=== PATIENT | male | born 1945 | race Caucasian/White ===

== ENCOUNTER 2018-07-08 08:14 | Inpatient (IN) | payer MEDICARE, BC, SELFPAY ==
[2018-06-20 08:56] VITALS: BMI 33.3
[2018-07-08] VITALS (14 sets, daily range): BP systolic 100–156; BP diastolic 55–97; PULSE 44–91; RESP 16–20; TEMP 36–37.1; O2SAT 18–98; BMI 33.3
--- NOTE | 2018-07-08 | DI.RAD.S_ITS ---
PROCEDURE: XR PELVIS 1-2V INDICATIONS: TOTAL HIP TECHNIQUE: 1 view of the lower pelvis acquired. COMPARISON: None. FINDINGS: Bones: Patient is status post right hip arthroplasty, with hardware components in expected positions. The hip joint appears congruent. The visualized bony structures appear intact. Previously placed left hip arthroplasty hardware is seen. Soft tissues: Overlying postoperative changes are noted. No suspicious soft tissue densities. Vasectomy clips are seen. IMPRESSION: Normal postoperative examination. Dictated by: Marcus Guillen M.D. on 07/08/2018 at 14:41 Approved by: Marcus Guillen M.D. on 07/08/2018 at 14:41
--- NOTE | 2018-07-08 08:53 | PM.PREOP ---
Pre-operative Note Interval Note Pre-op Check: Yes History & Physical Reviewed by Physician Changes: No
[2018-07-08] MEDS: CELECOXIB 200 MG CAPSULE PO (09:31)
[2018-07-08] MEDS: ACETAMINOPHEN 325 MG TABLET 975 MG PO ×3 (09:32→20:44)
[2018-07-08] MEDS: LACTATED RINGERS 1,000 ML 42 ML IV ×2 (09:33→12:09)
[2018-07-08] MEDS: PREGABALIN 75 MG CAPSULE PO (09:33)
[2018-07-08] MEDS: CEFAZOLIN 2 GM/100 ML FROZ.PIGGY IV ×2 (10:55→18:56)
--- NOTE | 2018-07-08 11:28 | SUR.OPER ---
Lateral on padded OR bed. Gel axillary roll. Arms secured on padded armboard with pillow supporting top arm. Padded hip positioner braces x4 - anterior and posterior chest and pelvis. Additional gel pad used anterior pelvis. Gel pad under bottom leg from knee to foot and secured with tape over sheet.
[2018-07-08] MEDS: BUPIVACAINE 0.25% W/ EPI VIAL 50 ML INJ (11:41)
[2018-07-08] MEDS: TRANEXAMIC ACID 1,000 MG VIAL 1000 MG INJ (11:43)
--- NOTE | 2018-07-08 12:39 | P.OP_ITS ---
Operative Date/Time/Diagnoses Date of procedure: 07/08/18 Time of procedure: 12:34 Pre-op diagnosis: Right hip DJD Post-op diagnosis: same Procedure & Clinicians Procedure: Right total hip arthroplasty (CPT code 43590 with assistant branch manager) Same procedure as scheduled: Yes Indications: Patient is an 72-year-old male with severe right hip DJD. The patient has pain with activities and at rest, limited ambulation and activity tolerance, difficulties with ADLs, and failure of conservative treatment. We have discussed the nature of condition, treatment options, risks and benefits, and patient elects to proceed with total hip arthroplasty and gives informed consent. Surgeon: Olayinka Osorio Centrifugal Station Operator: Giselle Saravia Anesthesia Type: General and Spinal Operative Notes Closure Type: primary Specimen(s): none sent Implants & Drains: Acetabulum: Portillo and Nephew R3 acetabular component size 58 mm Femoral component: Portillo and Nephew Synergy stem size 13 with high offset Femoral head: 36 mm + 0 cobalt chrome Estimated Blood Loss (mL): 100 Procedure in detail: After satisfaction induction of anesthetic, and administration of IV antibiotics, the patient was positioned in the lateral decubitus position with all bony prominences well padded and pelvic position secured using a hip medical voucher clerk positioning device. Right hip and lower extremity prepped and draped in the usual sterile fashion, 1st dose of intravenous tranexamic acid was administered, then a longitudinal incision was created centered over the greater trochanter and carried sharply through the skin and subcutaneous tissues down to the fascia stephanie which was divided longitudinally and retracted with a Charnley retractor. External rotators visualize, cut, tagged, and retracted posteriorly, then the capsule was cut in a T-type fashion with the corners tagged and retracted. Hip was dislocated and femoral neck cut made according to preoperative templating. Acetabular retractors then placed, and the acetabular labrum and osteophytes were excised. The acetabulum was then sequentially reamed to 57 mm with an excellent circumferential ream and fit with the trial. The trial component was removed and a permanent size 58 mm Portillo and Nephew R3 acetabular component was selected, positioned, and impacted with satisfactory position and fixation achieved. Permanent liner was then inserted with the elevated lip directed posteriorly. Soft tissue then removed off the lateral femoral neck in the lateral neck was entered using a box osteotome. T-handled reamers placed down the canal followed by sequential broaching to 13 with the final broach left in place for trial reduction which demonstrated excellent leg length, range of motion, and stability characteristics with a 36 mm +0 trial ball and high offset neck. The trial and broach were removed, and a permanent size 13 high offset Portillo and Nephew Synergy stem was selected and inserted with excellent position and fixation achieved. Another trial reduction yielded the above characteristics so the trial ball was exchanged for a permanent 36 mm +0 cobalt chrome ball. The hip was irrigated and reduced and excellent leg length range of motion and stability characteristics were achieved and maintained. Periarticular tissues were infiltrated with Marcaine. The hip was copiously irrigated, and the capsule repaired with #2 Ethibond, and the piriformis was repaired back to the greater trochanter with the same. Fascia stephanie closed with interrupted #1 Ethibond sutures, and the subcutaneous tissues were closed in 2 layers of 0 Vicryl and 2 0 Vicryl. Skin was closed with isabela and sterile dressings applied. Second dose of tranexamic acid was administered intravenously, and the anesthetic was terminated. Complications: none Condition: stable Disposition: PACU Plan for aftercare: Patient will be admitted to the acute care concepcion, and anticipate discharge on postop day 2 with follow-up in office in 10-14 days. Outpatient physical therapy will be arranged and patient will continue to observe posterior hip precautions. Patient will continue use of postoperative Lovenox for 10 days postop.
--- NOTE | 2018-07-08 13:00 | SUR.PHASEI ---
pt awake and alert. denies any complaints sitting up drinking coffee. dressing dry and intact. Report called to Siddhartha.
[2018-07-08] MEDS: LACTATED RINGERS 1,000 ML 125 ML IV ×2 (14:20→23:48)
--- NOTE | 2018-07-08 14:57 | PC.NURSE ---
Patient arrived to unit at 1315, VSS, awake pleasant and talkative. Denies pain. Bulky dressing to right hip CDI, ice pack in place. Good pulses and feet warm and pink. Patient has no sensation to bilateral lower legs yet although starting to move feet. Posterior hip precautions maintained and patient and his educated on these. Urinal placed at bedside, patient due to void post surgery. IV fluids infusing as ordered.
[2018-07-08] MEDS: ASPIRIN EC 81 MG TABLET PO (20:44)
[2018-07-08] MEDS: RANOLAZINE 500 MG TAB.ER.12H PO (20:45)
[2018-07-08] MEDS: NIACIN 500 MG TAB ER 1000 MG PO (20:45)
[2018-07-08] MEDS: OXYCODONE IR 5 MG TABLET 7.5 MG PO (20:49)
[2018-07-09] VITALS: BP 125/72; PULSE 76; RESP 16; TEMP 36.9; O2SAT 97
[2018-07-09] MEDS: CEFAZOLIN 2 GM/100 ML FROZ.PIGGY IV (03:04)
[2018-07-09 04:44] VITALS: BP 120/68; PULSE 60; RESP 18; TEMP 36.8; O2SAT 96
[2018-07-09 06:22] LABS: Hematocrit 37.6 % (41-53); Hemoglobin 13.2 g/dL (13.5-17.5)
[2018-07-09] MEDS: HYDROCODONE/ACET 5/325 TABLET 1 TAB PO (06:58)
[2018-07-09] MEDS: LACTATED RINGERS 1,000 ML 125 ML IV (06:58)
--- NOTE | 2018-07-09 07:44 | PM.DS.1 ---
History of Present Illness Date Patient Seen: 07/09/18 Time Patient Seen: 07:44 Chief complaint: [id number] RIGHT TOTAL HIP ARTHROPLASTY Narrative: Patient is a 72-year-old male with history of right hip osteoarthritis. He failed conservative measures and elected to proceed with right total hip replacement by Dr. Osorio at [facility]. Other details of his H&P can be found in the electronic chart. Discharge Providers Date of admission: 07/08/18 08:14 Primary care physician: Giancarlo Oseguera MD Consults: 07/08/18 14:00 Consult to Discharge Planning Routine Comment: Consult to Physical Therapy Evaluate & Treat Comment: Physician Instructions: post op SHEA protocol Consult to Respiratory Therapy Evaluate & Treat Comment: Physician Instructions: Evaluate and treat Discharge provider: Tierney Magallanes PA-C Summary Discharge Diagnosis: Right hip osteoarthritis Hospital Course: Patient was admitted taken operating room he had a right total hip arthroplasty by Dr. Osorio. He recovered well as transfer to the floor for further care. Postop day 1 and the patient's pain was under control, eating and drinking well, and able to urinate without difficulty. He will be discharged home today if cleared by physical therapy. He will start physical therapy next week at [facility] in [place]. He has his follow-up appointment next week. He is a [facility] patient and has his discharge pain medications already. He will be discharged with a prescription for Lovenox 40 mg to take for 9 days. Status at Discharge Cognitive/behavioral status at discharge: Alert orient x3 Functional status at discharge: uses cane/walker Time Spent with Patient Less than 30 minutes Exam Vital Signs (past 8 hours): - 07/09/18 00:00 07/09/18 04:44 Temperature 98.5 F 98.2 F Pulse Rate 76 60 Respiratory Rate 16 18 Blood Pressure 125/72 120/68 Pulse Oximetry 97 96 Oxygen Delivery Method Room Air Oxygen Flow Rate 4 Narrative Exam Narrative: Patient in bed. Appears comfortable. Alert orient x3. Right hip dressing clean dry and intact. Moderate swelling right thigh. Still some numbness in the upper thigh. Bilateral calf soft and nontender. Full sensation in foot and toes. 5/5 right ankle strength. Objective Labs Result Diagrams: 07/09/18 05:40 Labs: Laboratory Results - last 24 hr 07/09/18 05:40 Hgb 13.2 L Hct 37.6 L Discharge Plan Discharge Plan Patient Disposition: Home Discharge comment: Lovenox 40 mg subcutaneous daily for 9 days. Then restart daily dose of aspirin 81 mg. Do not take more than 4000 mg of Tylenol daily from all sources. Start physical therapy next week. Discharge Med Rec/Prescriptions Prescriptions: New enoxaparin [Lovenox] 40 mg/0.4 mL Syringe 40 mg subcut DAILY 9 Days RF: 0 acetaminophen 325 mg Tablet 975 mg PO TID Qty: 0 RF: 0 Continue niacin [Niaspan Extended-Release] 1,000 mg Tablet Extended Release 24 Hr 1,000 mg PO BEDTIME RF: 0 valsartan-hydrochlorothiazide [Diovan HCT] 80-12.5 mg Tablet 1 tab PO DAILY RF: 0 indomethacin 25 mg/5 mL Suspension 2.5 mg PO BID RF: 0 ibuprofen 200 mg Tablet 200 mg PO DAILY PRN (Reason: pain) RF: 0 nitroglycerin 0.4 mg Tablet, Sublingual 0.4 mg SUBLINGUAL Q5-15M PRN (Reason: Chest Pain) RF: 0 ranolazine [Ranexa] 500 mg Tablet Extended Release 12 Hr 500 mg PO BID RF: 0 oxycodone 7.5 mg Tablet, Oral Only 7.5 mg PO BID RF: 0 Discontinued aspirin [Aspir-81] 81 mg Tablet,Delayed Release (Dr/Ec) 81 mg PO DAILY RF: 0 Follow up/Referrals: Olayinka Osorio MD [Physician] - (Follow-up that scheduled time and date. Contact office with any issues or concerns.) Provider Discharge Instructions Diet: Diet as Tolerated Activity: Weightbearing as tolerated. Ambulate with assistance of a walker/cane. Posterior hip precautions. Cold/Heat Therapy: Apply ice to the extremity as needed for swelling and inflammation. Skin/Wound/Dressing Care Report to your healthcare provider any signs of infection, such as:: chills, fever, increased pain and unusual drainage Dressing: Keep dressing clean dry and intact. Visit Report/Discharge Packet Instructions: DI for Hip Replacement Discharge Data Primary Care Provider: Giancarlo Oseguera Attending Provider: Olayinka Osorio Admit Date/Time: 07/08/18 08:14
--- NOTE | 2018-07-09 07:48 | P.DS_ITS ---
History of Present Illness Date Patient Seen: 07/09/18 Time Patient Seen: 07:44 Chief complaint: [id number] RIGHT TOTAL HIP ARTHROPLASTY Narrative: Patient is a 72-year-old male with history of right hip osteoarthritis. He failed conservative measures and elected to proceed with right total hip replacement by Dr. Osoroi at [facility]. Other details of his H&P can be found in the electronic chart. Discharge Providers Date of admission: 07/08/18 08:14 Primary care physician: Giancarlo Oseguera MD Consults: 07/08/18 14:00 Consult to Discharge Planning Routine Comment: Consult to Physical Therapy Evaluate & Treat Comment: Physician Instructions: post op SHEA protocol Consult to Respiratory Therapy Evaluate & Treat Comment: Physician Instructions: Evaluate and treat Discharge provider: Tierney Magallanes PA-C Summary Discharge Diagnosis: Right hip osteoarthritis Hospital Course: Patient was admitted taken operating room he had a right total hip arthroplasty by Dr. Osorio. He recovered well as transfer to the floor for further care. Postop day 1 and the patient's pain was under control, eating and drinking well, and able to urinate without difficulty. He will be discharged home today if cleared by physical therapy. He will start physical therapy next week at [facility] in [place]. He has his follow-up appointment next week. He is a [facility] patient and has his discharge pain medications already. He will be discharged with a prescription for Lovenox 40 mg to take for 9 days. Status at Discharge Cognitive/behavioral status at discharge: Alert orient x3 Functional status at discharge: uses cane/walker Time Spent with Patient Less than 30 minutes Exam Vital Signs (past 8 hours): - 07/09/18 00:00 07/09/18 04:44 Temperature 98.5 F 98.2 F Pulse Rate 76 60 Respiratory Rate 16 18 Blood Pressure 125/72 120/68 Pulse Oximetry 97 96 Oxygen Delivery Method Room Air Oxygen Flow Rate 4 Narrative Exam Narrative: Patient in bed. Appears comfortable. Alert orient x3. Right hip dressing clean dry and intact. Moderate swelling right thigh. Still some numbness in the upper thigh. Bilateral calf soft and nontender. Full sensation in foot and toes. 5/5 right ankle strength. Objective Labs Result Diagrams: 07/09/18 05:40 Labs: Laboratory Results - last 24 hr 07/09/18 05:40 Hgb 13.2 L Hct 37.6 L Discharge Plan Discharge Plan Patient Disposition: Home Discharge comment: Lovenox 40 mg subcutaneous daily for 9 days. Then restart daily dose of aspirin 81 mg. Do not take more than 4000 mg of Tylenol daily from all sources. Start physical therapy next week. Discharge Med Rec/Prescriptions Prescriptions: New enoxaparin [Lovenox] 40 mg/0.4 mL Syringe 40 mg subcut DAILY 9 Days RF: 0 acetaminophen 325 mg Tablet 975 mg PO TID Qty: 0 RF: 0 Continue niacin [Niaspan Extended-Release] 1,000 mg Tablet Extended Release 24 Hr 1,000 mg PO BEDTIME RF: 0 valsartan-hydrochlorothiazide [Diovan HCT] 80-12.5 mg Tablet 1 tab PO DAILY RF: 0 indomethacin 25 mg/5 mL Suspension 2.5 mg PO BID RF: 0 ibuprofen 200 mg Tablet 200 mg PO DAILY PRN (Reason: pain) RF: 0 nitroglycerin 0.4 mg Tablet, Sublingual 0.4 mg SUBLINGUAL Q5-15M PRN (Reason: Chest Pain) RF: 0 ranolazine [Ranexa] 500 mg Tablet Extended Release 12 Hr 500 mg PO BID RF: 0 oxycodone 7.5 mg Tablet, Oral Only 7.5 mg PO BID RF: 0 Discontinued aspirin [Aspir-81] 81 mg Tablet,Delayed Release (Dr/Ec) 81 mg PO DAILY RF: 0 Follow up/Referrals: Olayinka Osorio MD [Physician] - (Follow-up that scheduled time and date. Contact office with any issues or concerns.) Provider Discharge Instructions Diet: Diet as Tolerated Activity: Weightbearing as tolerated. Ambulate with assistance of a walker/ cane. Posterior hip precautions. Cold/Heat Therapy: Apply ice to the extremity as needed for swelling and inflammation. Skin/Wound/Dressing Care Report to your healthcare provider any signs of infection, such as:: chills, fever, increased pain and unusual drainage Dressing: Keep dressing clean dry and intact. Visit Report/Discharge Packet Instructions: DI for Hip Replacement Discharge Data Primary Care Provider: Giancarlo Oseguera Attending Provider: Olayinka Osorio Admit Date/Time: 07/08/18 08:14
[2018-07-09 08:29] VITALS: BP 130/77; PULSE 72; RESP 18; TEMP 36.9; O2SAT 96
--- NOTE | 2018-07-09 09:35 | PT.IIE ---
Current Diagnoses Unilateral primary osteoarthritis, right hip (07/08/18) Surgery Performed Operation Date: 07/08/18 07:45 Actual Procedures p Total Hip Arthroplasty(Right) - Olayinka Osorio MD Surgical History (Last Updated 06/20/18 @ 09:24 by Susannah Peña RN) H/O vasectomy (Acute) History of arthroplasty of left knee (Acute) History of arthroplasty of right knee (Acute) History of colon resection (Acute) History of total left hip arthroplasty (Acute) Hx of appendectomy (Acute) Hx of heart artery stent (Acute) Status post cataract extraction and insertion of intraocular lens of left eye (Acute) Status post cataract extraction and insertion of intraocular lens of right eye (Acute) Medical History (Last Reviewed 07/09/18 @ 07:23 by Rocky Paez, PT, [place]) CAD (coronary artery disease) (Acute) Diverticulitis (Acute) HTN (hypertension) (Acute) Hyperlipidemia (Acute) Osteoarthritis (Acute) Pneumonia (Acute) Pulmonary embolism (Acute) Ruptured cyst of kidney (Acute) Physical Therapy Inpatient Evaluation/Re-Eval M1 PT/OT-IP Prior Functional Status Start: 07/08/18 14:15 Freq: NEEDED Status: Active Protocol: Document 07/09/18 09:35 AB (Rec: 07/09/18 12:32 AB [id number]) Medical Review Prior Functional Status Medical History Reviewed Yes Communication able to make needs known Mobility and Gait pt stated that he is independent with all mobilities and ambulation without AD but occasionally uses a SPC. pt has been using for of the SPC for the passed month due to hip pain. Social History Household Members spouse Living Arrangements House Number of Floors (Floors) One Floor Number of Stairs To Enter/Railing? 2 steps to enter without rails Home Environment High Toilet Walk in Shower Home Equipment Front Wheel Walker Quad Cane Straight Cane Bedside Commode Grab Bars In Shower Employment Status Retired M2 PT-IP Current Condition Start: 07/08/18 14:15 Freq: NEEDED Status: Active Protocol: Document 07/09/18 09:35 AB (Rec: 07/09/18 12:32 AB [id number]) Physical Therapy Current Condition Current Condition Evaluation Date 07/09/18 Treatment Diagnosis s/p R SHEA posterior approach Onset Date 07/08/18 Precautions Posterior Hip Precautions No Hip Flexion > 90 degrees No Hip Internal Rotation No Hip Adduction Weight Bearing Status Weight Bearing Status Weight Bear as Tolerated M3 PT-IP Subjective Start: 07/08/18 14:15 Freq: NEEDED Status: Active Protocol: Document 07/09/18 09:35 AB (Rec: 07/09/18 12:32 AB [id number]) Subjective Physical Therapy Visit Type Type Initial Evaluation Visit Start Time 09:35 Visit Stop Time 10:26 Total Visit Minutes 51 Number of BRAKE DRUM LATHE OPERATOR Visits 0 Physical Therapy Visit Comments Patient Comments p agreeable to do PT Therapy Pain Assessment Pain When Pain Assessed At Rest Pain Present Pain Present Pain Reported Location Right Hip Intensity 5 Scale Used Numeric (1 - 10) Pain Management Techniques Apply Cold Re-positioning Timing of Activity with Medications M4 PT-IP Mobility and Gait Start: 07/08/18 14:15 Freq: NEEDED Status: Active Protocol: Document 07/09/18 09:35 AB (Rec: 07/09/18 12:32 AB [id number]) PT-Bed Mobility Assessment Supine to Sit Supine to Sit Standby Assistance Sit to Supine Sit to Supine Standby Assistance Scooting Scooting to Edge of Bed Standby Assistance PT-Transfer Assessment Sit to and From Stand Sit to and from Stand Standby Assistance Contact Guard Assistance Use of Upper Extremities Equipment Transfer Assistive Device Gait Belt Front Wheeled Walker Orthotic/Prosthetic Devices or Brace: No Transfers Transfer Destination Chair Transfer Technique Stand Step Pivot Transfer Ability Level of Assist Standby Assistance Contact Guard Assistance Comments Mobility Comments Pt completed sit <>stand x 8 reps with cues for technqiues to maintain hip precautions and safety. educated spouse on how to assist pt. Gait Assessment Gait Gait Assistance Required: Standby Assistance Distance (Feet) 75 Able to Maintain Weight Bearing Status Yes During Gait Assistive Devices Assistive Device Gait Belt Front Wheeled Walker Orthotic/Prosthetic Devices or Brace: No Gait Deviations General Gait Pattern Antalgic Decreased Stride Length Decreased Feet Clearance Factors Limiting Gait Function Factors Limiting Gait Function Decreased Activity Tolerance Decreased Strength Limited Range of Motion Pain Poor Balance Poor Safety Awareness Stair Climbing Assessment Evaluation Level of Assist On Stairs Contact Guard Assistance Minimal Assistance Devices Stair Climbing Assistive Devices Front Wheel Walker Technique/Endurance Stair Climbing Direction Ascend and Descend Stair Climbing Technique Step to Step Number of Steps Climbed 2 Query Text: Stair Climbing Set # Repetitions (reps) 2 Comments Stair Climbing Comments pt completed up/down 1 step with bilateral rails and completed 2 steps using FWW min A to stabilize FWW and provided CGA to pt for safety. instructed spouse on how to assist pt. PT-Balance Assessment Sitting Balance and Reactions Static Sitting Balance Ability Good Dynamic Sitting Balance Ability Good Standing Balance and Reactions Static Standing Balance Ability Fair Dynamic Standing Balance Ability Fair Device Used FWW M5 PT-IP Objective Assessments Start: 07/08/18 14:15 Freq: NEEDED Status: Active Protocol: Document 07/09/18 09:35 AB (Rec: 07/09/18 12:32 AB [id number]) Orientation Orientation/Cognition Level of Alertness Alert Orientation Name Age Birthday Month Date Year Day of Week Place Situation Safety Awareness Decreased Safety Awareness Comments pt can be impulsive Gross Range of Motion Lower Extremity ROM Assessment Within Functional Limits Strength Lower Extremity Strength Assessment Right Impaired Knee 4-/5 Coordination Assessment Gross Coordination Gross Coordination WNL Sensation Assessment Sensation Gross Sensation WNL Muscle Tone Muscle Tone WNL Yes M6 PT-IP Treatment Start: 07/08/18 14:15 Freq: NEEDED Status: Active Protocol: Document 07/09/18 09:35 AB (Rec: 07/09/18 12:32 AB [id number]) Physical Therapy Treatment Education Education Provided Precautions Weight Bearing Status Post-Op Packet Safety M7 PT-IP Assessment and Plan Start: 07/08/18 14:15 Freq: NEEDED Status: Active Protocol: Document 07/09/18 09:35 AB (Rec: 07/09/18 12:32 AB [id number]) PT Summary Assessment and Plan Potential Rehabilitation Potential Good Summary Impairments Pain ROM Strength Balance Bed Mobility Transfers Gait Activity Tolerance Assessment Summary pt requiring one person assist with mobility and plans to go home with spouse to assist him. pt stated that he is set up for outpt PT. Pt may go home when medically stable. Goals Bed Mobility Goal Independent Transfer Goal Independent Gait Goal Independent Gait Distance 200 Other Goals up/down 2 steps using FWW SBA Days to Meet Goals 3 Frequency of Treatment Frequency Of Treatment Twice a Day Treatment Plan Physical Therapy Treatment Plan Bed Mobility Training Transfer Training Gait Training Therapeutic Exercise Balance Retraining Post Op Education Discharge Planning Hot or Cold Pack Neuromuscular Re-ed Coordination Retraining Manual Therapy Recommendations To Nursing Amount of Assist Needed Standby Assistance Discharge Recommendations PT Discharge Recommendations Home with Assistance Outpatient PT
[2018-07-09] MEDS: ACETAMINOPHEN 325 MG TABLET 975 MG PO ×2 (10:36→15:24)
[2018-07-09] MEDS: ASPIRIN EC 81 MG TABLET PO (10:38)
[2018-07-09] MEDS: ENOXAPARIN 40 MG/0.4 ML SYRINGE SUBCUT (10:39)
[2018-07-09] MEDS: OXYCODONE IR 5 MG TABLET 7.5 MG PO (11:00)
[2018-07-09] MEDS: RANOLAZINE 500 MG TAB.ER.12H PO (11:00)
[2018-07-09] MEDS: SODIUM CHLORIDE 0.9% FLUSH 10 ML IV (11:00)
[2018-07-09] MEDS: hydroCHLOROthiazide 12.5 MG CAPSULE PO (11:00)
--- NOTE | 2018-07-09 11:08 | CM.DANOTE ---
DCP/Assessment continued: Reviewed chart. Patient is a 72yr old male admitted to [facility] for right SHEA performed 07-08-[address] Osorio. PCP is Dr. Oseguera. Primary payor is 1)Medicare 2)[facility]. Met with patient and spouse/Deysi at bedside explained CM/SW role. Patient alert and oriented, resting comfortably at time of visit. Patient reports that the plans to return home today. Therapy has seen patient and patient/spouse report that he has been cleared to discharge. Patient denies any d/c planning needs and reports that he has outpatient therapy appointment with Orthopedics on 07-15-18. No additional needs identified. P: Home today with supportive spouse. Patient reports that he has all needed DME from previous orthopedic surgeries. 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 No Advance Directives on File No History Provided By Patient Significant Other Has Patient been admitted in last 30 No days? Prior Living Arrangements House Household Members spouse Type of transporation used prior to Drives own vehicle admit Independent with ADL's Yes Is patient alert and oriented? Yes Caregiver for Another No DME Already Rented / Owned FWW / Walker Cane Patient/Family Preference OP PT Therapy Barriers to Discharge No Discharge Plan Home Transportation Arrangement Spouse to provide transport Referrals Initiated None needed Whiteboard Updated in Patient Room with Yes name and ext. # of Hairspring Fabrication Supervisor Review Status In Process Please Provide Date Initial DC 07/09/18 Assessment Was Performed Next Review Type Continued Stay Review Pre-Anesthesia Assessment Start: 06/20/18 08:56 Freq: Status: Complete Protocol: Document 06/20/18 08:56 CAB (Rec: 06/20/18 09:53 CAB [id number]) Pre-Anesthesia Assessment Patient Also Known As Marrufo (AKA) Patient Information Reviewed Via Phone Assessment Assessment Completed With Patient Lab Results BMP/CMP CBC Comment Platelets 136 on pre-op labs Primary Care Provider Giancarlo Oseguera Seen Specialist in Last 12 Months Yes Specialist Seen Fitness Professional 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 No Height 190.5 cm Weight 121.109 kg Body Mass Index (BMI) 33.3 Hearing Ability Normal Visual Assist Magnifying Glass Dentition Type Full- Upper & Lower Barriers to Learning None Other Aids No Hx Anesthesia Reactions No Hx Family Anesthesia Reaction No Hx Malignant Hyperthermia No Hx Blood Transfusions No: Pt unsure Anesthesia Review Requested No Fretted Instrument Maker Hand No alcohol intake current alcohol intake frequency a few times a month Smoking Status Former smoker Smoking packs per day 1 how long ago did patient quit smoking Quit 1995, smoked 30 years Smoking pack-years 30 Substance Use Type does not use Pain Present Pain Reported Musculoskeletal Symptoms Abnormal Gait Difficulty Walking Joint Pain History of Falling (Recent or History of No ) Patient is completely paralyzed or No completely immobile Prosthesis or Orthotic Device Cane Mental Status Oriented to own ability Is patient on oxygen? 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 Cottrell Cardiac Testing No Hx Pacemaker/ICD No Pacemaker Rep Required? No Cardiac Clearance Received Yes Comment Cardiac note/clearance 05/15/18 to med records to be scanned Diet Type At Home Regular dysphagia No Urinary Catheter Present No Hx Urinary Self Catheterization No Diabetes No Hx Drug Resistant Organism No Presence of External or Internal Medical Yes Devices Comment Bilateral knee, left hip prosthesis, cardiac stents x 4 Have you traveled outside the [facility] in the last 30 days? Marital Status Lives With spouse Prior Living Arrangements House Number of Floors (Floors) One Floor Number of Stairs To Enter/Railing? 2 stairs, no railing Support System Child/Children Spouse Does the Patient Have Assistance After Yes Surgery Patient Discharge Plan Description Return Home Comment Pt not advised on length of stay per surgeon's office Feels Safe in Current Environment Yes Been Physically Hurt or Threatened By a No Person in Current Environment Do you have thoughts of harming yourself None or others? Are you currently considering suicide? No Do you have a plan to hurt yourself or No Plan others? Do You Have Any Spiritual Beliefs That No May Affect Your HC Choices? Do You Have Any Cultural Practices That No May Affect Your HC Choices? Spiritual Referral None Who Can We Speak to About Patient's Care Family, friends Identifying Code for Release of Patient Declines to issue Information Health Care Proxy/Next of Kin Deysi () Health Care Proxy Emergency Contact Name Deysi () Emergency Contact Advance Directives? Yes Advance Directives on File No Requested Patient Bring Advanced Yes Directives DOS Power of Transition Of Care Specialist Name Deysi () Power of Transition Of Care Specialist PAC Instructions Durable medical equipment Medications to take/avoid Nasal antibiotic No ETOH/petroleum product on skin DOS NPO Ortho class Pre-surgical wash Sturdy shoes/comfortable clothes Do not bring valuables and remove jewelry
[2018-07-09 12:29] VITALS: BP 129/78; PULSE 66; RESP 18; TEMP 36.8; O2SAT 98
[2018-07-09] MEDS: HYDROMORPHONE 2 MG TABLET PO (13:33)
[2018-07-09] MEDS: VALSARTAN 80 MG TABLET PO (15:25)
--- NOTE | 2018-07-09 16:44 | PC.NURSE ---
Discharge Note Pt discharged by day shift nurse. Awaiting prescription for Dilaudid. Charge nurse to OR to obtain order. Pt w/ belongings and discharge packet, no questions/concerns from pt or . Pt taken downstairs via wheelchair by nursing students.
--- NOTE | 2018-07-09 17:00 | PC.NURSE ---
Day Shift-[place] not effective pain management after 1100 dose. Dilaudid 2mg po prn given at 1330 by float RN, with good effect. Pain level 3-5/10. Pt needing prescription for discharge. Right hip dressing changed by float RN after shower. Pt states is ready for discharge. Pt's present to drive pt home. Called [facility] office to get alternative pain management prescription. Cell number for [facility] Monet rec'd, called and left message at [phone]. Called [facility] cell at 1520, voicemail rec'd, no message left. Called PACU to assess if ortho team present. department coordinator made aware at 1540, who was going to OR to possibly receive new prescription.
== END 2018-07-09 16:15 | disposition home or self-care (01) | DRG 470 ==
PROVIDERS: Admitting Provider Orthopaedic Surgery; Family Provider Internal Medicine; PCP Internal Medicine; Visit Provider Orthopaedic Surgery
PROC: 0SR90JZ Replacement of Right Hip Joint with Synthetic Substitute, Open Approach (ICD-10-PCS; CPT 27130; principal; 2018-07-08 07:45)
DX: M16.11 Unilateral primary osteoarthritis, right hip (principal); Z96.653 Presence of artificial knee joint, bilateral; Z96.642 Presence of left artificial hip joint; Z87.891 Personal history of nicotine dependence; I10 Essential (primary) hypertension; E78.5 Hyperlipidemia, unspecified
CPT/HCPCS: 36415; 72170; 85014; 85018; 97116; 97161; 97530; C1776; J0690; J1100; J1650; J2250; J2274; J2405; J2704

== ENCOUNTER → 2018-10-16 08:16 | Outpatient (CLI) | payer MEDICARE, BC, SELFPAY ==
[2018-07-08 08:39] VITALS: BMI 33.3
--- NOTE | 2018-10-16 08:18 | DI.US.S_ITS ---
PROCEDURE: US ABD AORTA ANEURYSM SCREEN INDICATIONS: AAA SCREEN TECHNIQUE: Real time scanning was performed of the aorta and iliac arteries, with image documentation. COMPARISON: None. FINDINGS: Aorta: Proximal aorta not well-seen. Mid-aorta measures 2.4 cm. Distal aortic diameter is 2.2 cm. Iliac arteries: Right common iliac artery measures 1.1 cm. Left common iliac artery measures 1 point cm. IMPRESSION: Proximal aorta not well visualized otherwise no abdominal aortic or proximal common iliac artery aneurysm. Dictated by: Renaldo Harmon [facility] Interpreted: Maxx Andersen MD on 10/16/2018 at 9:16 Approved by: Maxx Andersen M.D. on 10/16/2018 at 11:24
== END ==
PROVIDERS: Family Provider Internal Medicine; PCP Internal Medicine; Visit Provider Internal Medicine
DX: Z13.6 Encounter for screening for cardiovascular disorders (principal)
CPT/HCPCS: 76706

== ENCOUNTER → 2019-11-28 11:51 | Outpatient (CLI) | payer MEDICARE, BC, SELFPAY ==
[2018-07-08 08:39] VITALS: BMI 33.3
[2019-11-28 13:20] LABS: Blood Urea Nitrogen 21 mg/dL (9-20); Calcium 9.9 mg/dL (8.4-10.2); Carbon Dioxide 26 mmol/L (22-32); Chloride 105 mmol/L (98-107); Estimated Glomerular Filt Rate > 60.0 mL/min (>60); Glucose 99 mg/dL (80-110); HEMOLYSIS < 15 (0-50); Potassium 4.2 mmol/L (3.4-5.1); Sodium 140 mmol/L (137-145)
== END ==
PROVIDERS: Family Provider Internal Medicine; PCP Internal Medicine; Referring Provider Internal Medicine; Visit Provider Internal Medicine
DX: I10 Essential (primary) hypertension (principal); M15.0 Primary generalized (osteo)arthritis
CPT/HCPCS: 36415; 80048

== ENCOUNTER → 2020-01-26 10:58 | Outpatient (CLI) | payer MEDICARE, BC, SELFPAY ==
[2018-07-08 08:39] VITALS: BMI 33.3
--- NOTE | 2020-01-26 | DI.CT.S_ITS ---
PROCEDURE: CT ABDOMEN PELVIS WO CON INDICATIONS: ACUTE RIGHT FLANK PAIN TECHNIQUE: Noncontrast 5 mm thick sections acquired from the diaphragms to the symphysis. 5 mm thick coronal and sagittal reformats were then performed. For radiation dose reduction, the following was used: automated exposure control, adjustment of mA and/or kV according to patient size. COMPARISON: None. FINDINGS: Image quality: Excellent. Lung bases: Focal pneumonia, extreme right lung base. Heart size is normal. Advanced coronary artery atherosclerotic calcifications. Urinary system: Both kidneys are normal in size. No kidney stones. No hydronephrosis. Bilateral perinephric stranding, likely chronic. Bilateral renal cysts. Both ureters appear non-dilated throughout their expected courses. Bladder wall thickness is normal; no calcified bladder stones. Other solid organs: Liver is normal in size. Gallbladder contains tiny stones versus gravel. No gallbladder wall thickening. Pancreas is normal in contours. Spleen is normal in size. No adrenal nodules. Peritoneum and bowel: Unenhanced bowel loops demonstrate normal wall thickness and caliber. No free fluid or air. Extensive sigmoid diverticulosis without evidence of diverticulitis. Right colonic polyps. Appendectomy clips. Left perirenal clips. Large amount of colonic fecal debris. Nodes and vessels: No retroperitoneal or mesenteric adenopathy by size criteria. Mild aneurysmal dilatation of the abdominal aorta, measuring 3.5 cm. Extensive atherosclerotic calcifications. Inferior vena cava is normal in caliber. Abdominal wall: No ventral hernias. Pelvis: No free pelvic fluid. No inguinal hernias or adenopathy. Bones: No suspicious bony lesions. No vertebral body compression fractures. Bilateral total hip arthroplasties result in significant metallic streak artifact in the pelvis. IMPRESSION: 1. Focal pneumonia, extreme right lung base. 2. No renal stones, ureteral stones, or hydronephrosis. 3. Extensive sigmoid diverticulosis without evidence of diverticulitis. 4. Large amount of fecal debris. 5. Advanced coronary atherosclerosis and diffuse abdominal atherosclerosis Dictated by: Dinesh Cerda M.D. on 01/26/2020 at 11:18 Approved by: Dinesh Cerda M.D. on 01/26/2020 at 11:24
== END ==
PROVIDERS: Family Provider Internal Medicine; Referring Provider Internal Medicine; Visit Provider Student in an Organized Health Care Education/Training Program
DX: R10.9 Unspecified abdominal pain (principal); J18.9 Pneumonia, unspecified organism; K57.30 Diverticulosis of large intestine without perforation or abscess without bleeding; K63.5 Polyp of colon; I70.0 Atherosclerosis of aorta; I25.10 Atherosclerotic heart disease of native coronary artery without angina pectoris; I71.4 Abdominal aortic aneurysm, without rupture; N28.1 Cyst of kidney, acquired; Z96.643 Presence of artificial hip joint, bilateral
CPT/HCPCS: 74176; 80053; 81001; 83690; 85025; 87086

== ENCOUNTER → 2020-01-26 11:10 | Outpatient (CLI) | payer MEDICARE, BC, SELFPAY ==
[2018-07-08 08:39] VITALS: BMI 33.3
[2020-01-26 11:38] LABS: Add Manual Diff / Slide Review NO; Basophils Absolute Auto 0 /uL (0-100); Basophils Percent Auto 0.3 % (0-2); Eosinophils Absolute Auto 100 /uL (0-450); Eosinophils Percent Auto 0.6 % (2-4); Hematocrit 44.4 % (41-53); Hemoglobin 15.4 g/dL (13.5-17.5); Lymphocytes Absolute Auto 1200 /uL (1100-4500); Lymphocytes Percent Auto 10.2 % (25-40); Mean Corpuscular HGB Conc 34.8 % (30-36); Mean Corpuscular Hemoglobin 33.9 PG (26-34); Mean Corpuscular Volume 97.5 fL (80-100); Monocytes Absolute Auto 1300 /uL (0-900); Monocytes Percent Auto 10.8 % (3-14); Neutrophils Absolute Auto 9300 /uL (1500-7000); Neutrophils Percent Auto 78.1 % (50-75); Platelet Count 140 X10^3/uL (150-400); Red Blood Cell Count 4.56 X10^6/uL (4.5-5.9); White Blood Cell Count 11.9 X10^3/uL (4.5-11.0)
[2020-01-26 12:06] LABS: Alanine Aminotransferase 18 IU/L (<50); Albumin 4.5 g/dL (3.5-5.0); Albumin Globulin Ratio 1.3 (1.0-2.8); Alkaline Phosphatase 30 U/L (38-126); Aspartate Aminotransferase 27 IU/L (17-59); BUN Creatinine Ratio 16.1 (6-22); Bilirubin Total 1.5 mg/dL (0.2-1.3); Blood Urea Nitrogen 18 mg/dL (9-20); Calcium 9.9 mg/dL (8.4-10.2); Carbon Dioxide 27 mmol/L (22-32); Chloride 102 mmol/L (98-107); Estimated Glomerular Filt Rate > 60.0 mL/min (>60); Globulin 3.4 g/dL (1.7-4.1); Glucose 121 mg/dL (80-110); HEMOLYSIS < 15 (0-50); Lipase 29 U/L (23-300); Potassium 4.4 mmol/L (3.4-5.1); Sodium 139 mmol/L (137-145); Total Protein 7.9 g/dL (6.3-8.2)
[2020-01-26 13:43] LABS: Appearance Urine UA CLEAR; Bilirubin Urine UA NEGATIVE (NEGATIVE); Color Urine UA YELLOW; Glucose Urine UA NEGATIVE (Negative); Ketones Urine UA NEGATIVE (NEGATIVE); Leukocyte Esterase Urine UA TRACE (NEGATIVE); Nitrite Urine UA NEGATIVE (Negative); Occult Blood Urine UA TRACE-LYSED (Negative); Protein Urine UA NEGATIVE (Negative); Specific Gravity Urine UA 1.025 (1.000-1.035); Urobilinogen Urine UA 0.2 E.U./dL (0.2)
[2020-01-26 13:53] LABS: Amorphous Sediment Urine 1+; Bacteria Urine Few (2-10); Mucus Urine 1+ (Negative); RBC Urine 1-5/HPF (0-5/HPF); Squamous Epithelial Cell Urine 0-1 /HPF (0-5/HPF); WBC Urine 5-10/HPF (0-5/HPF)
[2020-01-26 13:54] LABS: Culture Indicated Urine Specimen Cultured
== END ==
PROVIDERS: Family Provider Internal Medicine; Referring Provider Internal Medicine; Visit Provider Internal Medicine
DX: R10.9 Unspecified abdominal pain (principal)
CPT/HCPCS: 80053; 81001; 83690; 85025; 87086

== ENCOUNTER → 2020-02-04 11:27 | Outpatient (CLI) | payer MEDICARE, BC, SELFPAY ==
[2018-07-08 08:39] VITALS: BMI 33.3
--- NOTE | 2020-02-04 | DI.RAD.S_ITS ---
PROCEDURE: XR CHEST 2V INDICATIONS: Pneumonia of lower lobe TECHNIQUE: 2 views of the chest were acquired. COMPARISON: [facility], CT, CT ABDOMEN PELVIS WO CON, 01/26/2020, 10:59. FINDINGS: Surgical changes and devices: None. Lungs and pleura: Lungs are mildly abnormal with pulmonary hyperexpansion and what appears to be a mild interstitial prominence best seen at the right lung base where a prior CT head identified mild pneumonia posteriorly. No pleural effusions or pneumothorax. Mediastinum: Mediastinal contours are normal except for moderate tortuosity of the low thoracic aorta. Heart size is normal. Bones and chest wall: No suspicious bony abnormalities. Soft tissues appear unremarkable. IMPRESSION: Pulmonary hyperexpansion, probable COPD. Right lung base pneumonia seen by CT scanning/ does not appear to have progressed. No pleural effusion is associated. Note is again made of tortuosity of the descending thoracic aorta. Dictated by: Mukesh Burnett M.D. on 02/04/2020 at 12:20 Approved by: Mukesh Burnett M.D. on 02/04/2020 at 12:22
== END ==
PROVIDERS: Family Provider Internal Medicine; Referring Provider Student in an Organized Health Care Education/Training Program; Visit Provider Student in an Organized Health Care Education/Training Program
DX: J18.9 Pneumonia, unspecified organism (principal); I77.1 Stricture of artery
CPT/HCPCS: 71046